=== PATIENT | female | born 1945 | race Caucasian/White ===

== ENCOUNTER 2022-11-18 16:11 | Inpatient (IN) | payer MEDICARE ==
[~2022-11-18] VITALS: Ht 175.3 cm; Wt 115.7 kg
[2022-11-18] MEDS ORDERED: APIX5TAB PO (17:16)
[2022-11-18] MEDS ORDERED: DOCU-141 PO (17:16)
[2022-11-18] MEDS ORDERED: MELA3TAB41 PO (17:16)
[2022-11-18] MEDS ORDERED: DICL100G34 TP (17:16)
[2022-11-18] MEDS ORDERED: MENT3.5O TP (17:16)
[2022-11-18] MEDS ORDERED: SENN-261 PO (17:16)
[2022-11-18] MEDS ORDERED: EMPA10TA PO (17:16)
[2022-11-18] MEDS ORDERED: POLY17PO4 PO (17:16)
[2022-11-18] MEDS ORDERED: METF-440 PO (17:16)
[2022-11-18] MEDS ORDERED: ACET-868 PO (17:16)
[2022-11-18] MEDS ORDERED: ATOR40TA PO (17:16)
[2022-11-18] MEDS ORDERED: MULT1TAB70 PO (17:16)
[2022-11-18] MEDS ORDERED: METO25TA6 PO (17:16)
[2022-11-18 17:57] LABS: BASOPHILS % (AUTO) 0.2 % (0.0-2.0); HEMATOCRIT 37 % (33-45); HEMOGLOBIN 11.5 g/dL (11.5-14.8); LYMPHOCYTES # (AUTO) 0.8 K/uL (0.8-4.8); LYMPHOCYTES % (AUTO) 5.2 % (20.0-44.0); MEAN CORPUSCULAR HGB CONC 31 g/dl (31.0-36.0); MEAN CORPUSCULAR VOLUME 95 fL (82-100); MONOCYTES # (AUTO) 0.8 K/uL (0.1-1.30); MONOCYTES % (AUTO) 5.1 % (2.0-12.0); NEUTROPHILS # (AUTO) 13.3 K/uL (1.8-8.9); NEUTROPHILS % (AUTO) 89.5 % (43.0-81.0); PLATELET COUNT (AUTO) 257 K/uL (150-450); RED BLOOD CELL COUNT(AUTO) 3.93 MIL/uL (4.0-5.2); WHITE BLOOD COUNT (AUTO) 14.9 K/uL (4.3-11.0)
[2022-11-18 18:07] LABS: BILIRUBIN,URINE NEGATIVE (NEGATIVE); COLOR,URINE YELLOW (YELLOW); LEUKOCYTE ESTERASE ,URINE TRACE (NEGATIVE); NITRITE, URINE NEGATIVE (NEGATIVE); PROTEIN,URINE 1+ mg/dl (NEGATIVE); UGLUCOSE 3+ mg/dL (NEGATIVE); UROBILINOGEN,URINE 0.2 EU/dL (0.2)
[2022-11-18 18:36] LABS: ALBUMIN 3.6 g/dL (3.4-5.0); BILIRUBIN,DIRECT 0.4 mg/dL (0.0-0.2); BILIRUBIN,TOTAL 1.6 mg/dL (0.2-1.0); CALCIUM, SERUM 9.6 mg/dL (8.5-10.1); POTASSIUM 4.2 mmol/L (3.5-5.1); TOTAL PROTEIN, SERUM 7.8 g/dL (6.4-8.2)
[2022-11-18 18:43] LABS: BACTERIA,URINE 2+ /HPF (None Seen); SQUAMOUS EPITHELIAL CELL,UR Few /HPF (None Seen); WBC,URINE 51-80 /HPF (0-3)
[2022-11-18] MEDS ORDERED: CEPH500C2 PO (18:59)
[2022-11-18] MEDS ORDERED: ONDANSETRON HCL/PF 4 MG/2 ML VIAL IV ONE (19:00)
[2022-11-18] MEDS ORDERED: IV NS 0.9% 1,000 ML IV ONE (19:00)
[2022-11-18] MEDS ORDERED: CEFTRIAXONE 1 G in IV D5W 50 ML IV ONE (19:00)
[2022-11-18] MEDS ORDERED: MORPHINE SULFATE INJ 2 MG/ML DISP.SYRIN IV ONE (19:00)
[2022-11-18] MEDS ORDERED: MEROPENEM 1,000 MG in IV NS 0.9% 100 ML IV ONE (21:30)
[2022-11-18] MEDS ORDERED: MEROPENEM 1 G VIAL IV ONE (22:22)
[2022-11-18] MEDS ORDERED: ONDANSETRON HCL/PF 4 MG/2 ML VIAL ONE (22:22)
[2022-11-18] MEDS ORDERED: Z GUARD REMEDY 4 OZ OINT TP PRN (23:30)
[2022-11-18] MEDS ORDERED: MAGNESIUM HYDROXIDE 30 ML UDC PO PRN (23:30)
[2022-11-18] MEDS ORDERED: HYDROCODONE/APAP 5/325MG TABLET PO PRN (23:30)
[2022-11-18] MEDS ORDERED: MAG HYDROX/AL HYDROX/SIMETH 30 ML UDC PO PRN (23:30)
[2022-11-18] MEDS ORDERED: ZOLPIDEM TARTRATE 5 MG TABLET PO PRN (23:30)
[2022-11-18] MEDS ORDERED: ONDANSETRON HCL/PF 4 MG/2 ML VIAL IVP PRN (23:30)
[2022-11-19] MEDS ORDERED: DOCUSATE SODIUM 100 MG CAPSULE PO PRN (02:00)
[2022-11-19] MEDS ORDERED: ACETAMINOPHEN 325 MG TABLET PO PRN (02:00)
[2022-11-19] MEDS ORDERED: SENNOSIDES 8.6 MG TABLET PO PRN (02:00)
[2022-11-19] MEDS ORDERED: DICLOFENAC TOPICAL 100 GM GEL..GM. TP PRN (02:00)
[2022-11-19] MEDS ORDERED: DEXTROSE 50%-WATER 50 ML DISP.SYRIN IV PRN (02:00)
[2022-11-19] MEDS ORDERED: POLYETHYLENE GLYCOL 3350 17 GM POWD.PACK PO PRN (02:00)
[2022-11-19 02:15] VITALS: BP 148/95
[2022-11-19] MEDS ORDERED: MEROPENEM 500 MG VIAL IV ONE (04:55)
[2022-11-19] MEDS ORDERED: MEROPENEM 500 MG in IV NS 0.9% 50 ML IV ONE (05:00)
[2022-11-19] MEDS: BLOOD SUGAR DIAGNOSTIC 1 EACH STRIP IN SCH ×3 (05:26→17:53)
[2022-11-19] MEDS: INSULIN REGULAR, HUMAN 100 UNIT/ML 3 ML VIAL SQ PRN ×2 (06:01→17:54)
[2022-11-19] MEDS: PANTOPRAZOLE 40 MG TABLET.DR PO SCH (07:30)
[2022-11-19 08:13] VITALS: BP 152/73
[2022-11-19 08:49] LABS: HEMATOCRIT 34 % (33-45); HEMOGLOBIN 10.7 g/dL (11.5-14.8); LYMPHOCYTES # (AUTO) 0.7 K/uL (0.8-4.8); LYMPHOCYTES % (AUTO) 5.9 % (20.0-44.0); MEAN CORPUSCULAR HGB CONC 31 g/dl (31.0-36.0); MEAN CORPUSCULAR VOLUME 96 fL (82-100); MONOCYTES # (AUTO) 0.1 K/uL (0.1-1.30); MONOCYTES % (AUTO) 0.5 % (2.0-12.0); NEUTROPHILS # (AUTO) 10.8 K/uL (1.8-8.9); NEUTROPHILS % (AUTO) 93.6 % (43.0-81.0); PLATELET COUNT (AUTO) 222 K/uL (150-450); RED BLOOD CELL COUNT(AUTO) 3.58 MIL/uL (4.0-5.2); WHITE BLOOD COUNT (AUTO) 11.5 K/uL (4.3-11.0)
[2022-11-19] MEDS: METOPROLOL TARTRATE 25 MG TABLET PO SCH ×2 (09:00→17:00)
[2022-11-19] MEDS ORDERED: IV NS 0.9% 1,000 ML IV PRN (09:30)
[2022-11-19 09:54] LABS: CALCIUM, SERUM 9.4 mg/dL (8.5-10.1); CARBON DIOXIDE 22 mmol/L (21-32); CHLORIDE 101 mmol/L (98-107); CREATININE 1.6 mg/dL (0.6-1.3); GLUCOSE 179 mg/dL (74-106); MAGNESIUM 1.8 mg/dL (1.8-2.4); PHOSPHORUS 4.5 mg/dL (2.5-4.9); POTASSIUM 3.8 mmol/L (3.5-5.1); SODIUM SERUM 140 mmol/L (136-145); UREA NITROGEN, BLOOD 20 mg/dL (7-18)
[2022-11-19] MEDS ORDERED: MORPHINE SULFATE INJ 4 MG/ML DISP.SYRIN IV PRN (10:00)
[2022-11-19] MEDS ORDERED: MEROPENEM 500 MG in IV NS 0.9% 50 ML IV SCH (13:00)
[2022-11-19 15:58] VITALS: BP 99/54
[2022-11-19] MEDS ORDERED: LIDOCAINE HCL/PF 1% 30 ML SDV ONE (17:10)
[2022-11-19] MEDS ORDERED: FLUMAZENIL 0.5 MG VIAL IV PRN (17:30)
[2022-11-19] MEDS ORDERED: NALOXONE PREFILLED SYRINGE 2 MG/2 ML SYRINGE IV PRN (17:30)
[2022-11-19] MEDS ORDERED: FENTANYL PF 250MCG/5ML AMPUL IV PRN (17:30)
[2022-11-19] MEDS ORDERED: MIDAZOLAM HCL 2 MG/2ML VIAL IV PRN (17:30)
[2022-11-19] MEDS: CEFEPIME 1 GM in IV D5W 50 ML IV SCH (18:00)
[2022-11-19 18:48] LABS: BAND % (MANUAL) 18 % (0.0-5.0); LYMPHOCYTES % (MANUAL) 9 % (16-48); NEUTROPHILS % (MANUAL) 73 (42-76)
[2022-11-19 20:00] VITALS: BP 129/88
[2022-11-19] MEDS: ATORVASTATIN 40 MG TABLET PO SCH (21:19)
[2022-11-20] VITALS: BP 124/81
[2022-11-20] MEDS: BLOOD SUGAR DIAGNOSTIC 1 EACH STRIP IN SCH ×5 (00:22→21:32)
[2022-11-20] MEDS: INSULIN REGULAR, HUMAN 100 UNIT/ML 3 ML VIAL SQ PRN ×3 (00:23→21:43)
[2022-11-20 05:00] VITALS: BP 131/69
[2022-11-20 06:24] LABS: BASOPHILS % (AUTO) 0.1 % (0.0-2.0); EOSINOPHILS % (AUTO) 0.1 % (0.0-6.0); HEMATOCRIT 31 % (33-45); LYMPHOCYTES # (AUTO) 1.3 K/uL (0.8-4.8); MEAN CORPUSCULAR HGB CONC 32 g/dl (31.0-36.0); MEAN CORPUSCULAR VOLUME 93 fL (82-100); MONOCYTES # (AUTO) 0.9 K/uL (0.1-1.30); MONOCYTES % (AUTO) 4.2 % (2.0-12.0); NEUTROPHILS # (AUTO) 19.5 K/uL (1.8-8.9); NEUTROPHILS % (AUTO) 89.6 % (43.0-81.0); PLATELET COUNT (AUTO) 136 K/uL (150-450); RED BLOOD CELL COUNT(AUTO) 3.35 MIL/uL (4.0-5.2); WHITE BLOOD COUNT (AUTO) 21.7 K/uL (4.3-11.0)
[2022-11-20 07:08] LABS: CREATININE 1.1 mg/dL (0.6-1.3); POTASSIUM 3.9 mmol/L (3.5-5.1)
[2022-11-20] MEDS: PANTOPRAZOLE 40 MG TABLET.DR PO SCH (07:39)
[2022-11-20] MEDS: METOPROLOL TARTRATE 25 MG TABLET PO SCH ×2 (08:07→16:34)
[2022-11-20 09:00] VITALS: BP 103/60
[2022-11-20 12:00] VITALS: BP 116/73
[2022-11-20] MEDS: DIGOXIN INJ 0.5 MG/2 ML AMPUL IV SCH ×2 (12:06→17:47)
[2022-11-20 16:15] VITALS: BP 123/78
[2022-11-20] MEDS: CEFEPIME 1 GM in IV D5W 50 ML IV SCH (17:48)
[2022-11-20] MEDS: MEROPENEM 1 G in IV NS 0.9% 100 ML IV SCH (19:47)
[2022-11-20 20:00] VITALS: BP 119/73
[2022-11-20] MEDS ORDERED: DEXTROSE 50%-WATER 50 ML DISP.SYRIN IV PRN (21:00)
[2022-11-20] MEDS ORDERED: MEROPENEM 500 MG in IV NS 0.9% 50 ML IV SCH (21:00)
[2022-11-20] MEDS: ATORVASTATIN 40 MG TABLET PO SCH (21:32)
[2022-11-21] VITALS: BP 131/76
[2022-11-21] MEDS: DIGOXIN INJ 0.5 MG/2 ML AMPUL IV SCH (00:37)
[2022-11-21 04:00] VITALS: BP 135/89
[2022-11-21 05:53] LABS: BASOPHILS % (AUTO) 0.1 % (0.0-2.0); EOSINOPHILS % (AUTO) 0.3 % (0.0-6.0); HEMATOCRIT 31 % (33-45); HEMOGLOBIN 9.8 g/dL (11.5-14.8); LYMPHOCYTES # (AUTO) 1.6 K/uL (0.8-4.8); LYMPHOCYTES % (AUTO) 7.7 % (20.0-44.0); MEAN CORPUSCULAR HGB CONC 32 g/dl (31.0-36.0); MEAN CORPUSCULAR VOLUME 94 fL (82-100); MONOCYTES # (AUTO) 1.1 K/uL (0.1-1.30); MONOCYTES % (AUTO) 5.5 % (2.0-12.0); NEUTROPHILS # (AUTO) 17.8 K/uL (1.8-8.9); NEUTROPHILS % (AUTO) 86.4 % (43.0-81.0); PLATELET COUNT (AUTO) 145 K/uL (150-450); RED BLOOD CELL COUNT(AUTO) 3.32 MIL/uL (4.0-5.2); WHITE BLOOD COUNT (AUTO) 20.6 K/uL (4.3-11.0)
[2022-11-21 06:09] LABS: CALCIUM, SERUM 8.9 mg/dL (8.5-10.1); MAGNESIUM 2.2 mg/dL (1.8-2.4); PHOSPHORUS 2.9 mg/dL (2.5-4.9); POTASSIUM 3.8 mmol/L (3.5-5.1)
[2022-11-21] MEDS: INSULIN REGULAR, HUMAN 100 UNIT/ML 3 ML VIAL SQ PRN ×4 (06:21→21:37)
[2022-11-21] MEDS: BLOOD SUGAR DIAGNOSTIC 1 EACH STRIP IN SCH ×4 (06:55→21:32)
[2022-11-21] MEDS: PANTOPRAZOLE 40 MG TABLET.DR PO SCH (07:30)
[2022-11-21 08:00] VITALS: BP 138/86
[2022-11-21] MEDS: MEROPENEM 1 G in IV NS 0.9% 100 ML IV SCH ×2 (08:33→20:03)
[2022-11-21] MEDS: METOPROLOL TARTRATE 25 MG TABLET PO SCH ×2 (08:33→16:54)
[2022-11-21] MEDS ORDERED: IV NS 0.9% 1,000 ML IV ONE (15:30)
[2022-11-21 16:00] VITALS: BP 125/93
[2022-11-21 20:00] VITALS: BP 146/81
[2022-11-21] MEDS: ATORVASTATIN 40 MG TABLET PO SCH (21:23)
[2022-11-21] MEDS ORDERED: CEFTRIAXONE 1 G VIAL ONE (22:07)
[2022-11-21] MEDS: CEFTRIAXONE 1 G in IV D5W 50 ML IV SCH (22:09)
[2022-11-22] VITALS: BP 144/93
[2022-11-22 04:00] VITALS: BP 153/88
[2022-11-22 06:18] LABS: BASOPHILS % (AUTO) 0.1 % (0.0-2.0); HEMATOCRIT 31 % (33-45); LYMPHOCYTES # (AUTO) 1.9 K/uL (0.8-4.8); LYMPHOCYTES % (AUTO) 12.6 % (20.0-44.0); MEAN CORPUSCULAR HGB CONC 32 g/dl (31.0-36.0); MEAN CORPUSCULAR VOLUME 94 fL (82-100); MONOCYTES % (AUTO) 6.6 % (2.0-12.0); NEUTROPHILS % (AUTO) 79.7 % (43.0-81.0); PLATELET COUNT (AUTO) 153 K/uL (150-450); RED BLOOD CELL COUNT(AUTO) 3.34 MIL/uL (4.0-5.2); WHITE BLOOD COUNT (AUTO) 15.1 K/uL (4.3-11.0)
[2022-11-22 06:33] LABS: CALCIUM, SERUM 8.8 mg/dL (8.5-10.1); CREATININE 0.8 mg/dL (0.6-1.3); PHOSPHORUS 2.8 mg/dL (2.5-4.9); POTASSIUM 3.6 mmol/L (3.5-5.1)
[2022-11-22] MEDS: BLOOD SUGAR DIAGNOSTIC 1 EACH STRIP IN SCH ×4 (06:38→21:57)
[2022-11-22 08:00] VITALS: BP 152/93
[2022-11-22] MEDS: PANTOPRAZOLE 40 MG TABLET.DR PO SCH (08:07)
[2022-11-22] MEDS: METOPROLOL TARTRATE 25 MG TABLET PO SCH ×2 (09:14→17:25)
[2022-11-22] MEDS: INSULIN REGULAR, HUMAN 100 UNIT/ML 3 ML VIAL SQ PRN ×3 (12:55→21:42)
[2022-11-22 16:00] VITALS: BP 155/97
[2022-11-22 20:39] VITALS: BP 146/92
[2022-11-22] MEDS: ATORVASTATIN 40 MG TABLET PO SCH (21:39)
[2022-11-22] MEDS: CEFTRIAXONE 1 G in IV D5W 50 ML IV SCH (21:39)
[2022-11-23 01:26] VITALS: BP 150/92
[2022-11-23 04:10] VITALS: BP 154/79
[2022-11-23 06:09] LABS: BASOPHILS % (AUTO) 0.2 % (0.0-2.0); EOSINOPHILS % (AUTO) 2.1 % (0.0-6.0); HEMATOCRIT 32 % (33-45); HEMOGLOBIN 10.1 g/dL (11.5-14.8); LYMPHOCYTES # (AUTO) 1.7 K/uL (0.8-4.8); LYMPHOCYTES % (AUTO) 16.8 % (20.0-44.0); MEAN CORPUSCULAR HGB CONC 32 g/dl (31.0-36.0); MEAN CORPUSCULAR VOLUME 94 fL (82-100); MONOCYTES # (AUTO) 1.1 K/uL (0.1-1.30); MONOCYTES % (AUTO) 10.3 % (2.0-12.0); NEUTROPHILS # (AUTO) 7.3 K/uL (1.8-8.9); NEUTROPHILS % (AUTO) 70.6 % (43.0-81.0); PLATELET COUNT (AUTO) 161 K/uL (150-450); RED BLOOD CELL COUNT(AUTO) 3.42 MIL/uL (4.0-5.2); WHITE BLOOD COUNT (AUTO) 10.4 K/uL (4.3-11.0)
[2022-11-23 06:19] LABS: CALCIUM, SERUM 8.7 mg/dL (8.5-10.1); CREATININE 0.7 mg/dL (0.6-1.3); MAGNESIUM 1.9 mg/dL (1.8-2.4); PHOSPHORUS 3.2 mg/dL (2.5-4.9); POTASSIUM 3.5 mmol/L (3.5-5.1)
[2022-11-23] MEDS: BLOOD SUGAR DIAGNOSTIC 1 EACH STRIP IN SCH ×4 (07:00→22:58)
[2022-11-23 08:00] VITALS: BP 146/96
[2022-11-23] MEDS: PANTOPRAZOLE 40 MG TABLET.DR PO SCH (08:18)
[2022-11-23] MEDS: METOPROLOL TARTRATE 25 MG TABLET PO SCH ×2 (08:19→16:07)
[2022-11-23] MEDS: INSULIN REGULAR, HUMAN 100 UNIT/ML 3 ML VIAL SQ PRN ×3 (11:40→23:00)
[2022-11-23 12:00] VITALS: BP 157/90
[2022-11-23 16:00] VITALS: BP 159/92
[2022-11-23 20:00] VITALS: BP 158/82
[2022-11-23] MEDS: ATORVASTATIN 40 MG TABLET PO SCH (21:09)
[2022-11-23] MEDS: CEFTRIAXONE 1 G in IV D5W 50 ML IV SCH (21:10)
[2022-11-24] VITALS: BP 143/84
[2022-11-24 04:00] VITALS: BP 161/90
[2022-11-24 06:27] LABS: BASOPHILS % (AUTO) 0.3 % (0.0-2.0); EOSINOPHILS % (AUTO) 2.1 % (0.0-6.0); HEMATOCRIT 33 % (33-45); HEMOGLOBIN 10.5 g/dL (11.5-14.8); LYMPHOCYTES % (AUTO) 20.2 % (20.0-44.0); MEAN CORPUSCULAR HGB CONC 32 g/dl (31.0-36.0); MEAN CORPUSCULAR VOLUME 92 fL (82-100); MONOCYTES # (AUTO) 1.3 K/uL (0.1-1.30); MONOCYTES % (AUTO) 12.9 % (2.0-12.0); NEUTROPHILS # (AUTO) 6.6 K/uL (1.8-8.9); NEUTROPHILS % (AUTO) 64.5 % (43.0-81.0); PLATELET COUNT (AUTO) 185 K/uL (150-450); RED BLOOD CELL COUNT(AUTO) 3.56 MIL/uL (4.0-5.2); WHITE BLOOD COUNT (AUTO) 10.2 K/uL (4.3-11.0)
[2022-11-24 06:28] LABS: CALCIUM, SERUM 8.8 mg/dL (8.5-10.1); CARBON DIOXIDE 31 mmol/L (21-32); CHLORIDE 106 mmol/L (98-107); CREATININE 0.8 mg/dL (0.6-1.3); GLUCOSE 120 mg/dL (74-106); MAGNESIUM 1.8 mg/dL (1.8-2.4); PHOSPHORUS 3.2 mg/dL (2.5-4.9); POTASSIUM 3.2 mmol/L (3.5-5.1); SODIUM SERUM 143 mmol/L (136-145); UREA NITROGEN, BLOOD 15 mg/dL (7-18)
[2022-11-24] MEDS: INSULIN REGULAR, HUMAN 100 UNIT/ML 3 ML VIAL SQ PRN ×4 (06:52→22:06)
[2022-11-24] MEDS: BLOOD SUGAR DIAGNOSTIC 1 EACH STRIP IN SCH ×4 (06:52→21:36)
[2022-11-24 08:00] VITALS: BP 159/90
[2022-11-24] MEDS: PANTOPRAZOLE 40 MG TABLET.DR PO SCH (08:06)
[2022-11-24] MEDS: METOPROLOL TARTRATE 25 MG TABLET PO SCH ×2 (08:06→17:20)
[2022-11-24] MEDS: ACETAMINOPHEN 325 MG TABLET PO PRN (08:13)
[2022-11-24] MEDS ORDERED: POTASSIUM CHLORIDE 20 MEQ POWDER PACKET PO ONE (11:00)
[2022-11-24 12:00] VITALS: BP 157/88
[2022-11-24 16:00] VITALS: BP 147/84
[2022-11-24 20:00] VITALS: BP 152/87
[2022-11-24] MEDS: CEFTRIAXONE 1 G in IV D5W 50 ML IV SCH (21:36)
[2022-11-24] MEDS: ATORVASTATIN 40 MG TABLET PO SCH (21:36)
[2022-11-25] VITALS: BP 155/86
[2022-11-25 04:00] VITALS: BP 159/89
[2022-11-25] MEDS: PANTOPRAZOLE 40 MG TABLET.DR PO SCH (07:29)
[2022-11-25] MEDS: BLOOD SUGAR DIAGNOSTIC 1 EACH STRIP IN SCH ×4 (07:33→22:30)
[2022-11-25 08:00] VITALS: BP 150/79
[2022-11-25] MEDS: LISINOPRIL (5MG) 5 MG TABLET PO SCH ×2 (08:08→16:03)
[2022-11-25] MEDS: METOPROLOL TARTRATE 25 MG TABLET PO SCH ×2 (08:08→16:04)
[2022-11-25 11:18] VITALS: BP 143/80
[2022-11-25] MEDS: LIDOCAINE 5% (PATCH) 1 EA PATCH TP SCH (11:49)
[2022-11-25] MEDS: INSULIN REGULAR, HUMAN 100 UNIT/ML 3 ML VIAL SQ PRN ×3 (12:15→22:30)
[2022-11-25 15:49] VITALS: BP 148/66
[2022-11-25] MEDS: ACETAMINOPHEN 325 MG TABLET PO PRN (16:47)
[2022-11-25 20:00] VITALS: BP 147/75
[2022-11-25] MEDS: CEFTRIAXONE 1 G in IV D5W 50 ML IV SCH (22:03)
[2022-11-25] MEDS: ATORVASTATIN 40 MG TABLET PO SCH (22:05)
[2022-11-26 05:54] LABS: BASOPHILS % (AUTO) 0.3 % (0.0-2.0); EOSINOPHILS % (AUTO) 1.8 % (0.0-6.0); HEMATOCRIT 31 % (33-45); HEMOGLOBIN 10.2 g/dL (11.5-14.8); LYMPHOCYTES % (AUTO) 22.8 % (20.0-44.0); MEAN CORPUSCULAR HGB CONC 33 g/dl (31.0-36.0); MEAN CORPUSCULAR VOLUME 91 fL (82-100); MONOCYTES # (AUTO) 1.1 K/uL (0.1-1.30); MONOCYTES % (AUTO) 12.8 % (2.0-12.0); NEUTROPHILS # (AUTO) 5.4 K/uL (1.8-8.9); NEUTROPHILS % (AUTO) 62.3 % (43.0-81.0); PLATELET COUNT (AUTO) 243 K/uL (150-450); RED BLOOD CELL COUNT(AUTO) 3.38 MIL/uL (4.0-5.2); WHITE BLOOD COUNT (AUTO) 8.7 K/uL (4.3-11.0)
[2022-11-26 06:13] LABS: CALCIUM, SERUM 8.8 mg/dL (8.5-10.1); CREATININE 0.7 mg/dL (0.6-1.3); POTASSIUM 3.2 mmol/L (3.5-5.1)
[2022-11-26] MEDS: BLOOD SUGAR DIAGNOSTIC 1 EACH STRIP IN SCH ×2 (06:55→11:40)
[2022-11-26] MEDS: INSULIN REGULAR, HUMAN 100 UNIT/ML 3 ML VIAL SQ PRN ×2 (06:55→11:45)
[2022-11-26 07:00] VITALS: BP 149/86
[2022-11-26] MEDS: PANTOPRAZOLE 40 MG TABLET.DR PO SCH (07:28)
[2022-11-26] MEDS ORDERED: Hydrocodone/Apap 5/325MG PO (08:37)
[2022-11-26] MEDS ORDERED: PANT40TA49 PO (08:37)
[2022-11-26] MEDS ORDERED: CIPR500T5 PO (08:37)
[2022-11-26] MEDS ORDERED: LISI-768 PO (08:37)
[2022-11-26] MEDS: LISINOPRIL (5MG) 5 MG TABLET PO SCH (08:43)
[2022-11-26 08:44] VITALS: BP 149/86
[2022-11-26] MEDS: METOPROLOL TARTRATE 25 MG TABLET PO SCH (08:44)
[2022-11-26] MEDS: POTASSIUM CHLORIDE 20 MEQ TAB.PRT.SR PO SCH ×2 (10:41→11:40)
[2022-11-26] MEDS: LIDOCAINE 5% (PATCH) 1 EA PATCH TP SCH (11:40)
== END 2022-11-26 16:25 | DRG 853 ==
LOC: ER 16:15 → TRANSITION 11-19 00:59 → MED 11-19 01:53 → TELE 11-19 02:21 → MED 11-25 16:00
PROVIDERS: ADMIT Student in an Organized Health Care Education/Training Program; ATTEND Internal Medicine
PROC: 0T133JD Bypass Right Kidney Pelvis to Cutaneous with Synthetic Substitute, Percutaneous Approach (ICD-10-PCS; principal; 2022-11-19)
DX: A41.9 Sepsis, unspecified organism (principal); N17.0 Acute kidney failure with tubular necrosis; E87.1 Hypo-osmolality and hyponatremia; N13.6 Pyonephrosis; J81.1 Chronic pulmonary edema; I48.91 Unspecified atrial fibrillation; Z20.822 Contact with and (suspected) exposure to COVID-19; E78.5 Hyperlipidemia, unspecified; I10 Essential (primary) hypertension; E11.9 Type 2 diabetes mellitus without complications; I69.398 Other sequelae of cerebral infarction; R26.9 Unspecified abnormalities of gait and mobility; G47.00 Insomnia, unspecified; Z88.1 Allergy status to other antibiotic agents; Z79.84 Long term (current) use of oral hypoglycemic drugs; Z79.01 Long term (current) use of anticoagulants; Z79.899 Other long term (current) drug therapy; E86.0 Dehydration; Z93.6 Other artificial openings of urinary tract status; Z87.440 Personal history of urinary (tract) infections; Z68.37 Body mass index [BMI] 37.0-37.9, adult; Z82.49 Family history of ischemic heart disease and other diseases of the circulatory system; B96.20 Unspecified Escherichia coli [E. coli] as the cause of diseases classified elsewhere; B96.4 Proteus (mirabilis) (morganii) as the cause of diseases classified elsewhere; R65.20 Severe sepsis without septic shock; E66.01 Morbid (severe) obesity due to excess calories
CPT/HCPCS: 36415; 71045-TC; 76882; 80048-TC; 80076-TC; 81001; 82962-TC; 83690-TC; 83735-TC; 84100-TC; 85025-TC; 85610-TC; 85730-TC; 87040-TC; 87081-TC; 87086-TC; 93307-TC; 97116-TC; 97530-TC; A4215; C9803; G0378; J0692; J0696; J1160; J1815; J2185; J2270; J2405; J3490; J7030; J7050; J7060